=== PATIENT | female | born 1990 | race Two or more races ===

== ENCOUNTER 2024-11-27 15:30 | Inpatient (IN) | payer SELFPAY ==
[~2024-11-27] VITALS: Ht 149.9 cm; Wt 94.3 kg
[2024-11-27] MEDS: LIDOCAINE 2%HCL (LOCAL ANESTH.) INJ 10ml MDV ONE (15:55)
--- NOTE | 2024-11-27 16:10 | LDN2 ---
Labor and Delivery Note Date 11/27/24 Age 34 3 Para 3 EDC 10-6 EGA 40+wks Diagnosis boa,previous csx1 Vaginal Delivery: VTX Vacuum Assisted: No Placenta: Spontaneous Sex: Male Apgars 10/10 Nuchal Cord Transected: No Amniotic Fluid: Clear Anesthesia xylocaine Episiotomy: No Extension: Yes (2nd dge perineal llac) Repaired with 2-0 chromic EBL 300ml Complications none Conditions stable Comments/Significant Med Mitchell spec exam no cxal lac Visit Coding OBGYN Date of Service: Nov 27, 2024 Billing Provider: PAULA MAYBERRY DO MANAGER ACUTE Common Visit Codes: [id number] OBS CARE (HIGH) MANAGER ACUTE Procedure Codes: 98969-[id number] DELIVERY ONLY PAULA MAYBERRY DO Nov 27, 2024 16:10
[2024-11-27] MEDS ORDERED: LACTATED RINGER'S 1,000 ML IV SCH (16:30)
--- NOTE | 2024-11-27 16:41 | DVHHP2 ---
OB CC & HPI Date Date of Admission: Nov 27, 2024 Patient Identification: : 3 Para: 3 EDC: Nov 24, 2024 EGA: 40.3wk Chief Complaints: Reason for admission: other (BOA) Other reason for admission: BOA @ 1429 History of Present Complaints Pt present to OB unit by ambulance for BOA at 1429, denies any significant med hx OB hx: full term in 2020 uncomplicated, primary C/S full term in 2022, full term in 2024 Past Medical History Cardiac: No pertinent Hx Pulmonary: No pertinent Hx Central Nervous System: No pertinent Hx GI: No pertinent Hx Hemotology/Oncology: No pertinent Hx Hepatobiliary: No pertinent Hx Psychiatric: No pertinent Hx Musculoskeletal: No pertinent Hx Rheumotologic: No pertinent Hx Infectious Disease: No peritnent Hx ENT: No pertinent Hx Renal/: No pertinent Hx Endocrine: No pertinent Hx Dermatology: No pertinent Hx Past Surgical History: (in 2022 for breech presentation) OB History OB History Care: Good Care Ultrasounds: Normal mid trimester US (from s) Obstetrical Complications: None Medical Complications: None Allergies Doxycycline Current Medications PNV Family & Social History Family/Social History Past Family/Social History: denies Blood Type: O+ Rubella: immune RPR/VDRL: Negative GBS Status: Negative HBsAG: Negative Review of Systems Constitutional: No symptom reported Ears, Nose, & Throat: No symptom reported Eyes: No symptom reported Pulmonary/Respiratory: No symptom reported Cardiovascular: No symptom reported Gastrointestinal: No symptom reported Genitourinary: No symptom reported Musculoskeletal: No symptom reported Skin: No symptom reported Psychiatric: No symptom reported Endocrine: No symptom reported Hemotologic/Lymphatic: No symptom reported OB Admission Exam Physical Exam HEENT: TMs Normal, Fontanelles Normal, Nasal Mucosa Normal, Eyes non-injected, Oropharynx Normal, PERRLA, Moist Membranes, EOMI Heart: Rhythm Normal Lungs: Clear Abdomen: Gravid Extremities: Normal Reflexes: Normal Pelvic Exam: No exam done Cervical Dilatation: None Date/Time Contractions Began: 11/27/24 OB Plan Plan Admitting Diagnosis: 34 yo @ 40.3wk BOA GBS negative Other Plan: P: Admit to L&D Informed consent obtained Routine labs ordered Pain mgmt as needed Continue routine PP care Consult with Dr zand PRN Visit Coding OBGYN Date of Service: Nov 27, 2024 Billing Provider: PAULA MAYBERRY DO TRAVELING CLERK Common Visit Codes: [id number] INP/OBS CARE (MOD) TRAVELING CLERK Procedure Codes: 44475-RCLF W/ CARE EDIL ANGUIANO Nov 27, 2024 16:41
[2024-11-27] MEDS: LACT. RINGERS/OXYTOCIN 20UNITS 500 ML IV ONE ×2 (16:49→16:50)
[2024-11-27] MEDS: LIDOCAINE 2%HCL (LOCAL ANESTH.) INJ 20ML MDV IJ PRN (16:50)
[2024-11-27] MEDS: DERMOPLAST 60ML BOTTLE TOP PRN (16:55)
[2024-11-27] MEDS: WITCH HAZEL-GLYCERIN PAD TOP PRN (16:55)
[2024-11-27] MEDS: PHISODERM TOP SOLN 240ML BTL TOP PRN (16:55)
[2024-11-27 17:08] LABS: Hematocrit 37.1 % (36.0-46.0); Hemoglobin 12.8 g/dL (12.2-16.2); Mean Corpuscular Hemoglobin 31.4 pg (28.0-32.0); Mean Corpuscular Volume 90.9 fL (80.0-100.0); Nucleated Red Blood Cells % 0.0 %; Urine Protein, UAD 1+ (Negative)
[2024-11-27 17:25] LABS: Albumin 3.6 g/dL (3.2-4.8); Amphetamine Screen, Urine Neg (NEGATIVE); Anion Gap 13 (5-15); BUN/Creatinine Ratio 14.8 (10.0-20.0); Barbiturate Scree,Urine Neg (NEGATIVE); Benzodiazephine Screen, Urine Neg (NEGATIVE); Blood Urea Nitrogen 9 mg/dL (9-23); Calcium 9.0 mg/dL (8.7-10.4); Cocaine Screen, Urine Neg (NEGATIVE); Glucose 101 mg/dL (74-106); Opiate Scree,Urine Neg (NEGATIVE); Phencyclidine Screen, Urine Neg (NEGATIVE); Sodium 140 mmol/L (136-145); Total Protein 6.7 g/dL (5.7-8.2)
[2024-11-27 17:26] LABS: Alanine Aminotransferase < 9 U/L (7-40); Alkaline Phosphatase 119 U/L (46-116); Bilirubin, Total 0.4 mg/dL (0.2-1.0); Cannabinoid Screen, Urine Neg (NEGATIVE); Carbon Dioxide 19 mmol/L (20-31); Chloride 108 mmol/L (98-107); INR 1.0 (0.9-1.15); Partial Thromboplastin Time 25.4 SEC (24.5-34.5); Potassium 3.5 mmol/L (3.5-5.1); Prothrombin Time 10.6 sec (9.3-11.8)
[2024-11-27] MEDS ORDERED: ACETAMINOPHEN 325 MG TAB PO PRN (18:15)
[2024-11-27 19:00] VITALS: BP 134/89; PULSE 98; RESP 16; TEMP 98.3; O2SAT 96
[2024-11-27] MEDS ORDERED: OXYTOCIN 10UNIT/ML 1ML VIAL IV ONE (20:06)
[2024-11-27 23:05] VITALS: BP 118/76; PULSE 84; RESP 17; TEMP 98; O2SAT 98
--- NOTE | 2024-11-28 01:15 | DVHDS2 ---
Obstetrics Discharge Summary Obstetrics Discharge Summary Date of Admission: Nov 27, 2024 Date of Discharge: Nov 28, 2024 Reason For Admission: Others (BOA, ) Procedures: None Procedures: None Operative Complicat: Laceration (second degree Perineal) Discharge Diagnosis: Term -Delivered (BOA) Discharge Information: Activity (Unrestricted), Diet (Routine), Medications (sent to rx), Instructions (no heavy lifting, pelvic rest for 6 weeks), Discharge to (Home), Accompanied by (spouse) Visit Coding OBGYN Date of Service: Nov 28, 2024 Billing Provider: MAKSIM DIXON CNM MERCHANDISE PRESENTATION ASSOCIATE Common Visit Codes: 80192-PLT/OBS DISCH DAY >30MIN MERCHANDISE PRESENTATION ASSOCIATE Procedure Codes: 89682-XJBS W TOTAL OB CARE EDIL ANGUIANO Nov 28, 2024 01:15
--- NOTE | 2024-11-28 01:25 | DVHPN2 ---
Progress Note Date Seen: Nov 28, 2024 Subjective S: bleeding is less, eating food without issues, denies RUIZ, lightheaded/dizziness, pain well controlled with oral medications, no concerns with urinating, passing flatus, no BM yet, ambulating well, well, BCM undecided vital signs Vital Sign Date Time Temp Pulse Resp B/P (MAP) Pulse Ox O2 Delivery O2 Flow Rate FiO2 11/27/24 23:05 98.0 84 17 118/76 (90) 98 98.0 11/27/24 19:00 Room Air medications Current Medications Medications Dose Ordered Sig/Keith Route Start Time Stop Time Status Last Admin Dose Admin Lactated Ringer's 1,000 ml @ 125 mls/hr Q8H IV 11/27/24 16:30 Witch Lillian 1 pad PRN PRN TOP 11/27/24 16:30 11/27/24 16:55 1 PAD Sodium Lauryl Sulfate 240 ml PRN PRN TOP 11/27/24 16:30 11/27/24 16:55 240 ML Benzocaine 1 applic PRN PRN TOP 11/27/24 16:30 11/27/24 16:55 1 APPLIC Lidocaine HCl 20 ml ONCE PRN IJ 11/27/24 16:30 11/27/24 16:50 20 ML Ibuprofen 600 mg Q6HP PRN PO 11/27/24 18:15 Acetaminophen 650 mg Q4HP PRN PO 11/27/24 18:15 laboratory and microbiology Laboratory Tests 11/27/24 16:40 Test 11/27/24 16:40 Range/Units Serum Glucose 101 74-106 mg/dL Objective O: VSS Chest: heart and lung sounds normal. Abd soft, non-tender, fundus firm and midline, BS, no rebound or guarding Perineum approximated after second degree BLE: Non-tender, no edema Lochia - minimal Assessment/Plan A: 34yo ppd#1 s/p doing well. BOA Rh status + Rubella status immune Pain control with PO medications Bowel regimen encouraged with fluid and fiber P: D/C home today Rx sent to pharmacy precautions and preeclampsia warning signs reviewed f/u with [facility] OB office in 2 weeks Plan discussed with: Patient, Spouse RUBEN EDIL ARGUELLO Nov 28, 2024 01:25
[2024-11-28 03:28] VITALS: BP 119/64; PULSE 80; RESP 17; TEMP 98; O2SAT 97
[2024-11-28 07:00] VITALS: BP 116/75; PULSE 87; RESP 20; TEMP 98.1; O2SAT 99
[2024-11-28] MEDS: IBUPROFEN 600 MG TAB PO PRN (08:58)
[2024-11-28] MEDS: DOCUSATE SOD 100 MG CAP PO ONE (08:58)
[2024-11-28 11:00] VITALS: BP 114/80; PULSE 91; RESP 20; TEMP 97.7; O2SAT 97
[2024-11-28 14:43] VITALS: BP 133/86; PULSE 86; RESP 20; TEMP 98; O2SAT 96
[2024-11-28 19:20] VITALS: BP 139/83; PULSE 83; RESP 17; TEMP 98.2; O2SAT 100
[2024-11-28] MEDS: DOCUSATE SOD 100 MG CAP PO SCH (21:52)
[2024-11-28 23:11] VITALS: BP 124/79; PULSE 83; RESP 17; TEMP 97.8; O2SAT 98
--- NOTE | 2024-11-29 00:27 | DVHPN2 ---
Progress Note Date Seen: Nov 29, 2024 Subjective S: > Lochia minimal > Tolerating regular diet well. > Ambulating and voiding well w/o feeling lightheaded or dizzy. > Passing flatus but no BM yet. Breast feeding. > Contraceptive plan: > Desires and requests to be discharged home today vital signs Vital Sign Date Time Temp Pulse Resp B/P (MAP) Pulse Ox O2 Delivery O2 Flow Rate FiO2 11/28/24 23:11 97.8 83 17 124/79 (94) 98 97.8 11/28/24 19:00 Room Air 11/28/24 07:00 0.0 medications Current Medications Medications Dose Ordered Sig/Keith Route Start Time Stop Time Status Last Admin Dose Admin Lactated Ringer's 1,000 ml @ 125 mls/hr Q8H IV 11/27/24 16:30 Rigo Snyder 1 pad PRN PRN TOP 11/27/24 16:30 11/27/24 16:55 1 PAD Sodium Lauryl Sulfate 240 ml PRN PRN TOP 11/27/24 16:30 11/27/24 16:55 240 ML Benzocaine 1 applic PRN PRN TOP 11/27/24 16:30 11/27/24 16:55 1 APPLIC Lidocaine HCl 20 ml ONCE PRN IJ 11/27/24 16:30 11/27/24 16:50 20 ML Ibuprofen 600 mg Q6HP PRN PO 11/27/24 18:15 11/28/24 22:10 600 MG Acetaminophen 650 mg Q4HP PRN PO 11/27/24 18:15 Docusate Sodium 200 mg HS PO 11/28/24 22:00 11/28/24 21:52 200 MG laboratory and microbiology Laboratory Tests 11/27/24 16:40 Test 11/27/24 16:40 Range/Units Serum Glucose 101 74-106 mg/dL Objective A&O x3 NAD. Afebrile, VSS Chest: heart and lung sounds normal. Breasts: Nipples intact w/o cracks or soreness Abdomen: normal BS, soft, non-tender, no rebound or guarding, fundus firm @ U- 1, lochia minimal Perineum:- no edema, or erythema, laceration site with sutures intact, edges in good approximation. Extremities: no edema or tenderness Lochia - minimal Assessment/Plan A/P 34yo now ppd#2 s/p () doing well. Blood Type:O Rh: Positive Breast feeding Rubella Immune Pain control with oral medications Bowel regimen: Increase fluid intake and fiber in diet, Laxative PRN PP BCM Plan:Natural method; has been using it in the past, only when she plans to. Discharge plan: May discharge home later today if condition remains stable Plan discussed with: Patient Visit Coding OBGYN Date of Service: Nov 29, 2024 Billing Provider: MAKSIM DIXON CNM SCOUT LEASER Common Visit Codes: [id number] INP/OBS CARE(HIGH) MAKSIM DIXON CNM Nov 29, 2024 00:27
--- NOTE | 2024-11-29 00:39 | DVHDS2 ---
Discharge Summary Date of Admission Nov 27, 2024 at 15:30 Date of Discharge: Nov 29, 2024 Admitting Diagnosis BOA () @ 40w 3d EGA Perineal Laceration Wounds: Perineal Laceration Labs/Diagnostic Data: Laboratory Results Test 11/27/24 16:40 White Blood Count 13.4 10^3/uL (4.4-10.8) Red Blood Count 4.08 10^6/uL (4.0-5.20) Hemoglobin 12.8 g/dL (12.2-16.2) Hematocrit 37.1 % (36.0-46.0) Mean Corpuscular Volume 90.9 fL (80.0-100.0) Mean Corpuscular Hemoglobin 31.4 pg (28.0-32.0) Mean Corpuscular Hemoglobin Concent 34.5 g/dL (32.0-36.0) Red Cell Distribution Width 14.3 % (11.8-14.3) Platelet Count 178 10^3/uL (140-450) Mean Platelet Volume 9.8 fL (6.9-10.8) Neutrophils (%) (Auto) 86.6 % (37.0-80.0) Lymphocytes (%) (Auto) 7.3 % (10.0-50.0) Monocytes (%) (Auto) 5.6 % (0.0-12.0) Eosinophils (%) (Auto) 0.4 % (0.0-7.0) Basophils (%) (Auto) 0.1 % (0.0-2.0) Neutrophils # (Auto) 11.6 10 ^3/uL (1.6-8.6) Lymphocytes # (Auto) 1.0 10 ^3/uL (0.4-5.4) Monocytes # (Auto) 0.7 10 ^3/uL (0-1.3) Eosinophils # (Auto) 0.1 10 ^3/uL (0-0.8) Basophils # (Auto) 0 10 ^3/uL (0-0.2) Nucleated Red Blood Cells 0.0 % Prothrombin Time 10.6 sec (9.3-11.8) Prothrombin Time INR 1.00 (0.9-1.15) Activated Partial Thromboplast Time 25.4 SEC (24.5-34.5) Urine Color Yellow (Yellow) Urine Clarity Clear (Clear) Urine pH 6.0 (5.0-9.0) Urine Specific [place] 1.031 (1.001-1.035) Urine Protein 1+ (Negative) Urine Ketones 4+ (Negative) Urine Blood 1+ /uL (Negative) Urine Nitrite Negative (Negative) Urine Bilirubin Negative (Negative) Urine Urobilinogen Normal mg/dL (Negative) Urine Leukocyte Esterase Negative /uL (Negative) Urine RBC 18 /hpf (0 - 4) Urine Microscopic WBC 2 /HPF (0-5) Urine Squamous Epithelial Cells Few /hpf (<5) Urine Bacteria None seen /hpf (None Seen) Urine Mucus Few (None Seen) Urine Glucose Normal mg/dL (Normal) Sodium Level 140 mmol/L (136-145) Potassium Level 3.5 mmol/L (3.5-5.1) Chloride Level 108 mmol/L (98-107) Carbon Dioxide Level 19 mmol/L (20-31) Anion Gap 13 (5-15) Blood Urea Nitrogen 9 mg/dL (9-23) Creatinine 0.61 mg/dL (0.550-1.02) Glomerular Filtration Rate Calc 122 mL/min (>90) BUN/Creatinine Ratio 14.8 (10.0-20.0) Serum Glucose 101 mg/dL (74-106) Calcium Level 9.0 mg/dL (8.7-10.4) Total Bilirubin 0.4 mg/dL (0.2-1.0) Aspartate Amino Transferase (AST) 23 U/L (13-40) Alanine Aminotransferase (ALT) < 9 U/L (7-40) Alkaline Phosphatase 119 U/L (46-116) Total Protein 6.7 g/dL (5.7-8.2) Albumin 3.6 g/dL (3.2-4.8) Urine Opiates Screen Neg (NEGATIVE) Urine Fentanyl Screen Neg (NEGATIVE) Urine Barbiturates Screen Neg (NEGATIVE) Urine Phencyclidine Screen Neg (NEGATIVE) Urine Amphetamines Screen Neg (NEGATIVE) Urine Benzodiazepines Screen Neg (NEGATIVE) Urine Cocaine Screen Neg (NEGATIVE) Urine Cannabinoids Screen Neg (NEGATIVE) Treponema pallidum Antibody Non-reactive (Negative) Hepatitis C Antibody Negative (Negative) Other Laboratory Tests 11/27/24 16:40 Brief Hx & Hospital Course: Ms. Barker was admitted on 11/27/24 following at home. Sustained 2nd degree perineal laceration, same repaired. Placenta delivered on the unit.(See Admission Note for details) Normal course; meeting milestones w/o any problem or complications. Operations or Procedures Delivery of Placenta Repair of perineal Laceration Condition at Discharge: Good Final Diagnosis/Problems List Term - Delivered Discharge Disposition: Home Discharge Instruct/Medications Diet: Regular Diet comment: Routine regular diet rich in fiber, protein, iron and vitamin C with adequate fluid intake. Activity: No Restrictions, As Tolerated Activity comment: Unrestricted. Advance as tolerated. Balance activities with rest periods No heavy lifting, pushing or straining. Pelvic rest x 6weeks Follow Up/Referral: Follow up with your OB provider within 1 week Medications: Ibuprofen 600mg every 6 hours as needed for pain. Continue Vitamin and iron Discharge Statement: self care instructions given. emergency signs and symptoms including but not limited to pre-eclampsia precautions and signs of infection, PPH & of PPD reviewed with patient. "Patient was advised to return to the ER or call 911 if any headaches, dizziness, shortness of breath, chest pain, abdominal pain, bleeding, fevers, or worsening of medical condition. Patient was counseled about treatment plan, medications, possible side effects, patientverbalized understanding. All questions were answered to the best of my ability. This discharge took greater then 30 minutes in planning, reviewing documentation, counseling the patient, and discussing with other team members." ASSESSMENT ASSESSMENT Hospital Course Ms. Barker was admitted on 11/27/24 following at home. Sustained 2nd degree perineal laceration, same repaired. Placenta delivered on the unit.(See Admission Note for details) Normal course; meeting milestones w/o any problem or complications. Assessment Term - Delivered day #2 Visit Coding OBGYN Date of Service: Nov 29, 2024 Billing Provider: MAKSIM DIXON CNM INSTRUCTIONAL SYSTEMS DESIGN CONSULTANT Common Visit Codes: 80647-FSZ/OBS DISCH DAY >30MIN MAKSIM DIXON CNM Nov 29, 2024 00:39
[2024-11-29 02:45] VITALS: BP 117/75; PULSE 79; RESP 16; TEMP 98.3; O2SAT 98
[2024-11-29 06:55] VITALS: BP 125/86; PULSE 102; RESP 16; TEMP 98.3; O2SAT 99
[2024-11-29] MEDS ORDERED: PREN-96 PO (07:43)
== END 2024-11-29 11:07 | disposition home or self-care (01) | DRG 769 ==
LOC: LDRP 15:30
PROVIDERS: ADMIT Obstetrics & Gynecology; ATTEND Obstetrics & Gynecology
PROC: 0KQM0ZZ Repair Perineum Muscle, Open Approach (ICD-10-PCS; principal; 2024-11-27)
PROC: 10E0XZZ Delivery of Products of Conception, External Approach (ICD-10-PCS; 2024-11-27)
DX: Z39.0 Encounter for care and examination of mother immediately after delivery (principal); O70.1 Second degree perineal laceration during delivery
CPT/HCPCS: 36415; 59414; 80053; 80307; 81001; 81002; 85025; 85610; 85730; 86780; 86803; 86850; 86900; 86901; 94760; 96365; 96366; G0378; J2003